=== PATIENT | male | born 1985 | race Caucasian/White ===

== ENCOUNTER 2021-04-28 21:39 | Emergency (ER) | payer BC, SELFPAY ==
--- NOTE | ~2021-04-28 | XR_ITS ---
EXAMINATION: XR chest 2V DATE: 04/28/2021 22:18 INDICATION: Headaches and fever TECHNIQUE: frontal and lateral views of the chest were obtained. COMPARISON: None FINDINGS: Air-fluid level within a moderate-sized hiatal hernia. 4.5 cm masslike opacity projecting over the an terior lung base on the lateral projection without concerning correlate on the frontal projection mos t likely due to a pericardial fat pad near the apex of the heart. No other airspace opacities, pulmon kailee edema, pleural effusion or pneumothorax. Heart size is normal. Mild thoracic spondylosis. IMPRESSION: 1. 4.5 cm masslike opacity at the anterior lung base likely resulting from a prominent pericardial fa t pad. Given the masslike appearance however would consider low-dose noncontrast chest CT for confirm ation. 2. Moderate-sized hiatal hernia. Reviewed, dictated and finalized at [facility]. [employer] IMPRESSION: 1. 4.5 cm masslike opacity at the anterior lung base likely resulting from a pr ominent pericardial fat pad. Given the masslike appearance however would consid er low-dose noncontrast chest CT for confirmation. 2. Moderate-sized hiatal hernia.
--- NOTE | ~2021-04-28 | CT_ITS ---
EXAMINATION: CTA chest PE protocol DATE: 04/29/2021 00:01 INDICATION: Shortness of breath TECHNIQUE: Computed tomography (CT) pulmonary angiogram of the chest was performed with 100 mL Omnipa que-350 intravenous contrast. Additional 3D reconstructions utilizing coronal maximum intensity proje ction (MIP) were performed. Automated exposure control and iterative reconstruction technique were em ployed. The dose-length product was 632.76 mGy-cm. COMPARISON: None FINDINGS: Good contrast opacification of the pulmonary arteries. There is moderate streak artifact from dense c ontrast in the superior vena cava and right atrium. Mild to moderate scattered respiratory motion art ifact which mildly decreases sensitivity in some of the smaller subsegmental pulmonary arteries. No p ulmonary embolism identified. There is atelectasis in the bilateral lower lobes along side a large hi atal hernia with organoaxial volvulus. The hiatal hernia is sliding-type the gastroesophageal junctio n approximately 4 cm above the level of the thoracic hiatus. Small lung volumes with mosaic attenuati on in the lower lobes and left upper lobe which appears to result from suboptimal inspiratory effort with small amount of subsegmental air trapping which can be seen with small airway disease. No pneumo ofelia, pulmonary edema, pleural effusion or pneumothorax. Heart size is normal. No pericardial effusion . No abnormal pulmonary nodules or masses with the opacity seen on the prior lateral radiograph likel y resulting from small pericardial fat pads. Thoracic aorta is normal in caliber with no dissection. No pathologically enlarged thoracic lymphadenopathy. Visualized upper abdomen is unremarkable. Mild t horacic spondylosis. IMPRESSION: 1. No pulmonary embolism or other acute cardiopulmonary disease. 2. Compressive atelectasis in the bilateral lower lobes along side a large sliding-type hiatal hernia . Reviewed, dictated and finalized at [facility] [employer] IMPRESSION: 1. No pulmonary embolism or other acute cardiopulmonary disease. 2. Compressive atelectasis in the bilateral lower lobes along side a large slid ing-type hiatal hernia.
[2021-04-28 21:49] VITALS: BP 130/85; PULSE 132; RESP 24; TEMP 39.5; O2SAT 94
[2021-04-28 22:01] VITALS: BP 136/93; PULSE 125; RESP 28; O2SAT 93
--- NOTE | 2021-04-28 22:04 | ED.FEVER ---
HPI - Fever General Chief Complaint: Fever Stated Complaint: fever Time Seen by Provider: 04/28/21 21:48 Source: patient Mode of arrival: ambulatory Limitations: no limitations History of Present Illness HPI Narrative: Patient is a 35-year-old male complaining of fever, cough, body aches, nasal congestion and headache started yesterday. Patient denies any chest pain, shortness breath, abdominal pain, nausea, vomiting, diarrhea or urinary symptoms. Related Data Home Medications Medication Instructions Recorded Confirmed No Home Medications 04/28/21 04/28/21 Allergies Allergy/AdvReac Type Severity Reaction Status Date / Time No Known Allergies Allergy Verified 04/28/21 21:57 Review of Systems Review of Systems: All systems reviewed & are unremarkable except as noted in HPI and below Constitutional: Constitutional: Denies excessive sweating, Denies fatigue, Denies lethargy, Denies malaise, Denies weakness and Denies weight loss Eyes: Eyes: Denies blurry vision, Denies change in vision and Denies loss of vision ENT: Denies dizziness, Denies ear discharge, Denies headache(s), Denies lip swelling, Denies epistaxis, Denies nasal congestion, Denies neck pain, Denies throat swelling and Denies tongue swelling Cardiovascular: Cardiovascular: Denies chest pain, Denies chest pain at rest, Denies chest pain with activity, Denies diaphoresis, Denies rapid heart rate, Denies edema, Denies irregular heart rhythm, Denies lightheadedness, Denies palpitations, Denies dyspnea and Denies dyspnea on exertion Respiratory: Respiratory: Denies hemoptysis, Denies dyspnea and Denies dyspnea on exertion Gastrointestinal: Gastrointestinal: Denies abdominal pain, Denies melena, Denies hematochezia, Denies diarrhea, Denies nausea, Denies vomiting and Denies hematemesis Musculoskeletal: Musculoskeletal: Denies abnormal gait, Denies deformity, Denies joint swelling, Denies limited range of motion, Denies neck pain and Denies numbness Neurologic: Denies Abnormal speech present, Denies abnormal gait, Denies confusion, Denies dizziness, Denies focal weakness, Denies loss of vision, Denies numbness, Denies Other visual disturbances, Denies Sensory deficit (Neuro) and Denies weakness Psychiatric: Psychiatric: Denies confusion, Denies depression, Denies auditory hallucinations, Denies homicidal ideation and Denies suicidal ideation Endocrine: Endocrine: Denies cold intolerance, Denies excessive sweating, Denies fatigue, Denies heat intolerance and Denies palpitations Hematologic/Lymphatic: Hematologic/Lymphatic: Denies easy bleeding and Denies easy bruising Allergic/Immunologic: Allergic/Immunologic: Denies lip swelling, Denies throat swelling and Denies tongue swelling PMFSH Comments Past medical history: Cerebral palsy Family history: Unknown Social history: Non-smoker no EtOH or drug use Exam Const: General: cooperative, comfortable, no acute distress, well developed, alert and awake; No confusion Orientation/consciousness: oriented to person, oriented to place, oriented to time, patient oriented x3 and No confusion Limitations: no limitations HENMT: Head: normal to inspection, normocephalic and atraumatic Ears: hearing grossly normal bilaterally, TM normal on the right and TM normal on the left General nose exam: Normal external nose present, Normal nares present and No nasal discharge present Face and sinus: normal facial exam Mouth: Yes Normal oral and palatal mucosa present, Yes lip normal, Yes tongue normal and Yes oropharynx normal Throat: posterior oropharynx normal, tonsils normal and uvula midline Eyes: General: appearance normal, both eyes and all related structures Pupils: Equal, round and reactive pupils present EOM: EOMs intact bilaterally Neck: Neck: normal visual inspection, full ROM, no lymphadenopathy and no meningeal signs Chest: Chest palpation & inspection: normal inspection of the chest Resp: Effort & Inspection: patricia
[2021-04-28] MEDS: SODIUM CHLORIDE 0.9% IV 2,500 ML/1,000 ML BAG 999 ML IV CONT (22:21)
[2021-04-28] MEDS: ACETAMINOPHEN 500 MG TABLET 1000 MG PO (22:21)
[2021-04-28 22:31] VITALS: BP 136/96; PULSE 112; RESP 32; TEMP 37.7; O2SAT 95
--- NOTE | 2021-04-28 22:49 | PC.NURSE ---
Pt refusing straight catheter at this time. Urinal at bedside.
[2021-04-28 23:01] LABS: Basophils Percent Auto 0.6 % (0.2-1.2); Eosinophils Percent Auto 0.2 % (0-4.4); Hematocrit 39.6 % (42.0-52.0); Hemoglobin 12.9 g/dL (14.0-18.0); Immature Granulocyte Absolute 0.01 K/mm3 (0.00-0.031); Immature Granulocyte Percent A 0.2 % (0-0.5); Lymphocytes Absolute Auto 0.49 K/mm3 (0.9-3.2); Mean Corpuscular HGB Conc 32.6 g/dl (32-36); Mean Corpuscular Hemoglobin 25.7 pg (26-34); Mean Platelet Volume 9.9 fl (7.4-10.4); Monocytes Absolute Auto 1.7 K/mm3 (0.1-0.6); Monocytes Percent Auto 30.8 % (2.6-8.5); Neutrophils Absolute Auto 3.2 K/mm3 (1.3-6.7); Neutrophils Percent Auto 59.2 % (45.5-73.1); Platelet Count Result 270 k/mm3 (150-375); Red Blood Count 5.01 M/mm3 (4.6-6.20); White Blood Count 5.4 K/mm3 (4.5-10.0)
[2021-04-28 23:11] LABS: INR 1.1; Prothrombin Time 14.1 Seconds (11.1-14.7)
[2021-04-28 23:12] LABS: Partial Thromboplastin Time 30.3 SECONDS (22.3-36.8)
[2021-04-28 23:13] LABS: Lactic Acid Reflex 2.4 mmol/L (0.7-2.1)
[2021-04-28 23:16] LABS: Alanine Aminotransferase 21 U/L (4-50); Albumin Level 4.4 g/dL (3.5-5.1); Alkaline Phosphatase 64 U/L (38-126); Anion Gap 12 mmol/L (8-16); Aspartate Amino Transferase 26 U/L (17-59); Bilirubin,Total 0.6 mg/dL (0.2-1.3); Blood Urea Nitrogen 17 mg/dL (9-20); CRP 2.3 mg/dL (<1.0); Calcium 8.6 mg/dL (8.4-10.2); Carbon Dioxide 19 mmol/L (22-30); Chloride 102 mmol/L (98-107); Estimated CRCL calculation 73 ml/min; Estimated Glomerular Filt Rate > 60; Glucose 114 mg/dL (65-110); Potassium 3.2 mmol/L (3.4-5.0); Sodium 133 mmol/L (137-145)
[2021-04-28 23:38] VITALS: BP 145/91; PULSE 105; RESP 26; RESP 28; O2SAT 100; O2SAT 99
[2021-04-29 00:03] VITALS: BP 137/94; PULSE 118; RESP 30; O2SAT 99
[2021-04-29 00:04] LABS: EDCOVIDSCREEN Positive (Negative)
[2021-04-29] MEDS: SODIUM CHLORIDE 0.9% IV 2,500 ML/1,000 ML BAG 999 ML IV CONT (00:39)
[2021-04-29 00:41] VITALS: BP 126/84; PULSE 107; RESP 19; O2SAT 95
[2021-04-29] MEDS: POTASSIUM CHLORIDE 20 MEQ PACKET (FOR LIQUID) 40 MEQ PO (01:24)
[2021-04-29 01:25] VITALS: BP 127/82; PULSE 109; RESP 24; O2SAT 97
[2021-04-29 01:50] VITALS: BP 137/87; PULSE 104; RESP 20; O2SAT 98
[2021-04-29 01:59] LABS: Reflex Lactic Acid Yes or No Add Lactic
== END 2021-04-29 02:00 | disposition home or self-care (01) ==
PROVIDERS: Emergency Provider Emergency Medicine
DX: U07.1 COVID-19 (principal); G80.9 Cerebral palsy, unspecified; K44.9 Diaphragmatic hernia without obstruction or gangrene
CPT/HCPCS: 36415; 71046; 71275; 80053; 83605; 85025; 85610; 85730; 86140; 87040; 87426; 87804; 96365; 96367; 96375; 99284; A9270; C9803; J0456; J0696; J1100; J7030; J7040; Q9967